=== PATIENT | male | born 1985 | race African-American/Black ===

== ENCOUNTER 2022-05-05 11:02 | Emergency (ER) | payer MEDICAID ==
[~2022-05-05] VITALS: Ht 175.3 cm; Wt 90.9 kg
[2022-05-05 12:16] LABS: Salicylate < 1.7 mg/dL (2.8-20.0)
[2022-05-05 12:21] LABS: Acetaminophen < 2.0 ug/mL (10-30)
[2022-05-05 12:45] LABS: Amphetamine Screen, Urine POSITIVE (NEGATIVE); Barbiturate Scree,Urine NEGATIVE (NEGATIVE); Benzodiazephine Screen, Urine NEGATIVE (NEGATIVE); Cannabinoid Screen, Urine NEGATIVE (NEGATIVE); Cocaine Screen, Urine NEGATIVE (NEGATIVE); Opiate Scree,Urine NEGATIVE (NEGATIVE); Phencyclidine Screen, Urine NEGATIVE (NEGATIVE)
[2022-05-05] MEDS: risperiDONE 1 MG TAB PO SCH (22:00)
[2022-05-06] MEDS: risperiDONE 1 MG TAB PO SCH (19:27)
[2022-05-07] MEDS: risperiDONE 1 MG TAB PO SCH ×3 (00:52→22:33)
[2022-05-08 09:11] VITALS: BP 110/58
[2022-05-08] MEDS: risperiDONE 1 MG TAB PO SCH (19:18)
== END 2022-05-08 18:50 | disposition left against medical advice (07) ==
LOC: ER 11:02 → EDBD 11:02 → ER 05-08 18:50
DX: R45.851 Suicidal ideations (principal); F15.10 Other stimulant abuse, uncomplicated; F20.9 Schizophrenia, unspecified; F17.210 Nicotine dependence, cigarettes, uncomplicated; Z20.822 Contact with and (suspected) exposure to COVID-19
CPT/HCPCS: 36415; 80307; 80320; 80329; 87426

== ENCOUNTER 2024-03-12 19:47 | Emergency (ER) | payer MEDICAID ==
[~2024-03-12] VITALS: Ht 180.3 cm; Wt 114.0 kg
--- NOTE | 2024-03-12 20:05 | ED.PDOC ---
HPI (NEURO) HPI Comments A 38 year old male brought in by EMS presents to the ED with a chief complaint of seizure onset today. Per EMS, the patient was in the kitchen when he experienced a seizure that lasted about 2 minutes and hit head on the fridge, with no history of seizure. Upon EMS arrival patient was ANO x2 and is currently ANO x3. Patient states he is in "drug state of mind." Past medical history of Schizophrenia. No other symptoms or modifying factors present at this time. Chief Complaint: Seizure Time Seen by MD: 19:58 Primary Care Provider: None Information Source: Patient, Emergency Med Personnel Mode of Arrival: EMS Severity: Moderate Headache Severity: Moderate Timing: Hours Duration: Since onset Prehospital treatment: None Seizure Quality: Tonic-clonic Seizure Location: Generalized Circumstances: Spontaneous History of: Substance abuse Past Medical History PAST MEDICAL HISTORY: Schizophrenia Surgical History: Denies all surgeries Family History Family History: Reviewed,noncontributory to illness Social History Smoker: Cigarettes Alcohol: Denies ETOH Use Drugs: Methamphetamine Lives In: Homeless Constitutional: denies: chills, diaphoresis, fatigue, fever, malaise, sweats, weakness, others EENTM: denies: blurred vision, double vision, ear bleeding, ear discharge, ear drainage, ear pain, ear ringing, eye pain, eye redness, hearing loss, mouth pain, mouth swelling, nasal discharge, nose bleeding, nose congestion, nose pain, photophobia, tearing, throat pain, throat swelling, voice changes, others Respiratory: denies: cough, hemoptysis, orthopnea, SOB at rest, shortness of breath, SOB with excertion, stridor, wheezing, others Cardiovascular: denies: chest pain, dizzy spells, diaphoresis, Dyspnea on exertion, edema, irregular heart beat, left arm pain, lightheadedness, palpitations, PND, syncope, others Gastrointestinal: denies: abdomen distended, abdominal pain, blood streaked bowels, constipated, diarrhea, dysphagia, difficulty swallowing, hematemesis, melena, nausea, poor appetite, poor fluid intake, rectal bleeding, rectal pain, vomiting, others Genitourinary: denies: burning, dysuria, flank pain, frequency, hematuria, incontinence, penile discharge, penile sore, pain, testicle pain, testicle swelling, urgency, others Neurological: reports: seizure; denies: dizziness, fainting, headache, left sided numbness, left sided weakness, numbness, paresthesia, pre-existing deficit, right sided numbness, right sided weakness, speech problems, tingling, tremors, weakness, others Musculoskeletal: denies: back pain, gout, joint pain, joint swelling, muscle pain, muscle stiffness, neck pain, others Integumetry: denies: bruises, change in color, change in hair/nails, dryness, laceration, lesions, lumps, rash, wounds, others Allergic/Immunocompromised: denies: Difficulty Healing, Frequent Infections, Hives, Itching, others Hematologic/Lymphatic: denies: anemia, blood clots, easy bleeding, easy bruising, swollen glands, others Endocrine: denies: excessive hunger, excessive sweating, excessive thirst, excessive urination, flushing, intolerance to cold, intolerance to heat, unexplained weight gain, unexplained weight loss, others Psychiatric: denies: anxiety, bipolar disorder, depression, hopeless, panic disorder, schizophrenia, sleepless, suicidal, others All Other Systems: Reviewed and Negative Physical Exam General Appearance: No Apparent Distress, Normal HEENT: Normal ENT Inspection, Pharynx Normal, TMs Normal Neck: Full Range of Motion, Non-Tender, Normal, Normal Inspection Respiratory: Chest Non-Tender, Lungs Clear, No Accessory Muscle Use, No Respiratory Distress, Normal Breath Sounds Cardiovascular: No Edema, No JVD, No Murmur, No Gallop, Normal Peripheral Pulses, Regular Rate/Rhythm Breast Exam: Deferred Gastrointestinal: No Organomegaly, Non Tender, No Pulsatile Mass, Normal Bowel Sounds, Soft Genitalia: Deferred Pelvic: Deferred Rectal: Deferred Extremities: No calf tenderness, Normal capillary refill, Normal inspection, N ormal range of motion, Non-tender, No pedal edema Musculoskeletal : Apperance: Normal Neurologic: Alert, production zone leader II-XII nml as Tested, No Motor Deficits, Normal Affect, Normal Mood, No Sensory Deficits Cerebellar Function: Normal Reflexes: Normal Skin: Dry, Normal Color, Warm Lymphatic: No Adenopathy Was a procedure done? Was a procedure done?: No Differential Diagnosis (SZ) Seizure: Psychogenic Seizure, Hypocalcemia, Hypoglycemia, Hyponatremia, Hypoxemia CVA: CVA, DKA General Weakness: N/A Headache: N/A X-Ray, Labs, Meds, VS Vital Signs Date Time Temp Pulse Resp B/P (MAP) Pulse Ox O2 Delivery O2 Flow Rate FiO2 03/13/24 05:00 108 21 135/86 (102) 100 03/13/24 04:00 118 03/13/24 03:00 119 17 127/81 (96) 92 03/13/24 01:28 134 14 134/95 (108) 96 03/13/24 00:00 93 03/12/24 22:00 122 32 152/69 (96) 91 03/12/24 20:38 127 19 93 Room Air* 0 21 03/12/24 20:37 97.9 127 19 120/81 (94) 93 97.9 03/12/24 20:05 129 03/12/24 20:00 127 03/12/24 19:55 97.6 130 18 115/65 (82) 96 Lab Test 03/12/24 20:46 03/12/24 20:45 Range/Units White Blood Count 10.8 4.4-10.8 10^3/uL Red Blood Count 5.59 4.5-5.90 10^6/uL Hemoglobin 17.4 13.5-17.5 g/dL Hematocrit 50.5 41.0-53.0 % Mean Corpuscular Volume 90.3 80.0-100.0 fL Mean Corpuscular Hemoglobin 31.0 28.0-32.0 pg Mean Corpuscular Hemoglobin Concent 34.4 32.0-36.0 g/dL Red Cell Distribution Width 13.8 11.8-14.3 % Platelet Count 243 140-450 10^3/uL Mean Platelet Volume 8.4 6.9-10.8 fL Neutrophils (%) (Auto) 81.1 H 37.0-80.0 % Lymphocytes (%) (Auto) 7.3 L 10.0-50.0 % Monocytes (%) (Auto) 11.2 0.0-12.0 % Eosinophils (%) (Auto) 0.3 0.0-7.0 % Basophils (%) (Auto) 0.1 0.0-2.0 % Neutrophils # (Auto) 8.7 H 1.6-8.6 10 ^3/uL Lymphocytes # (Auto) 0.8 0.4-5.4 10 ^3/uL Monocytes # (Auto) 1.2 0-1.3 10 ^3/uL Eosinophils # (Auto) 0 0-0.8 10 ^3/uL Basophils # (Auto) 0 0-0.2 10 ^3/uL Nucleated Red Blood Cells 0.1 % Sodium Level 128 L 136-145 mmol/L Potassium Level 4.0 3.5-5.1 mmol/L Chloride Level 94 L 98-107 mmol/L Carbon Dioxide Level 23 20-31 mmol/L Anion Gap 11 5-15 Blood Urea Nitrogen 13 9-23 mg/dL Creatinine 1.23 0.700-1.30 mg/dL Glomerular Filtration Rate Calc 77 >90 mL/min BUN/Creatinine Ratio 10.6 10.0-20.0 Serum Glucose 131 H 74-106 mg/dL Calcium Level 9.6 8.7-10.4 mg/dL Urine Color Colorless Yellow Urine Clarity Clear Clear Urine pH 5.5 5.0-9.0 Urine Specific [place] 1.010 1.001-1.035 Urine Protein 1+ H Negative Urine Ketones Trace Negative Urine Blood 2+ H Negative /uL Urine Nitrite Negative Negative Urine Bilirubin Negative Negative Urine Urobilinogen Normal Negative mg/dL Urine Leukocyte Esterase Negative Negative /uL Urine RBC 2 0 - 3 /hpf Urine WBC 1 0 - 3 /hpf Urine Squamous Epithelial Cells Few <5 /hpf Urine Bacteria None seen None Seen /hpf Urine Mucus Few None Seen Urine Sperm Present None Seen /hpf Urine Glucose Normal Normal mg/dL Urine Opiates Screen Neg NEGATIVE Urine Fentanyl Screen Neg NEGATIVE Urine Barbiturates Screen Neg NEGATIVE Urine Phencyclidine Screen Neg NEGATIVE Urine Amphetamines Screen Pos NEGATIVE Urine Benzodiazepines Screen Neg NEGATIVE Urine Cocaine Screen Neg NEGATIVE Urine Cannabinoids Screen Neg NEGATIVE Current Medications Medications (Trade) Dose Ordered Sig/Lilia Route Start Time Stop Time Status Last Admin Sodium Chloride 1,000 ml @ 1,000 mls/hr Q1H ONCE IV 03/12/24 23:15 03/13/24 00:14 DC 03/12/24 23:[address] [address] Ph: [phone] DIAGNOSTIC IMAGING Diagnostic Imaging Report : [id number] Signed PATIENT: KRISTOFER THOMPSON ACCT: [id number] UNIT: [id number] : 1985 LOC: ER ROOM / BED: / AGE / SEX: 38 / M ADM STATUS: REG ER SERVICE 00 ORDERING PHYSICIAN: TASNEEM CASTELLANOS MD PROCEDURE(s): HWOCT - HEAD WITHOUT CONTRAST REASON: seizure ORDER NUMBER(s): [id number], ACCESSION NUMBER(s): [id number] EXAM: CT HEAD WITHOUT CONTRAST INDICATION: seizure TECHNIQUE: CT of the head without intravenous contrast. Radiation Dose Information: CT Dose: CTDI volume is 139.62 mGy. Dose-length product is 2748.91 mGy*cm The dose indicators for CT are the volume Computed Tomography (CT) Dose Index (CTDIvol) and the Dose Length Product (DLP), and are measured in units of mGy and mGy-cm, respectively. These indicators are not patient dose, but values generated from the CT scanner acquisition factors. The report includes radiation exposure data for exposures received during this examination. COMPARISON: None FINDINGS: There is no evidence of acute intracranial hemorrhage, extra-axial collection, mass effect, midline shift, herniation or hydrocephalus. The ventricles, sulci and cisterns are age appropriate. The king-white differentiation is intact. Patchy periventricular and subcortical white matter hypoattenuation is nonspecific but may be related to small vessel ischemic disease. The visualized paranasal sinuses and mastoid air cells are clear. The surrounding soft tissues and osseous structures are unremarkable. IMPRESSION: 1. No acute intracranial hemorrhage. 2. No CT findings of territorial ischemia. 3. No intracranial mass or mass effect. ATED BY: NELLY FULTON Jr., DO DICTATED DATE/TIME: 03/12/242035 SIGNED BY: NELLY FULTON Jr., DO SIGNED DATE/TIME: 03/12/242035 CC: [place] [id number] Ph: [phone] DIAGNOSTIC IMAGING Diagnostic Imaging Report : [id number] Signed PATIENT: KRISTOFER THOMPSON ACCT: [id number] UNIT: [id number] : 1985 LOC: ER ROOM / BED: / AGE / SEX: 38 / M ADM STATUS: REG ER SERVICE 00 ORDERING PHYSICIAN: TASNEEM CASTELLANOS MD PROCEDURE(s): CXR2 - CHEST TWO VIEWS ROUTINE REASON: seizure ORDER NUMBER(s): [id number], ACCESSION NUMBER(s): [id number] EXAM: XY CHEST TWO VIEWS ROUTINE CLINICAL HISTORY: seizure TECHNIQUE: Frontal and lateral views of the chest WID: COMPARISON: None FINDINGS: Lines and tubes: None Chest: The heart size and pulmonary vasculature is within normal limits. No pleural effusion, pneumothorax, or consolidation. The osseous structures are grossly intact. IMPRESSION: No acute cardiopulmonary abnormality. ATED BY: KRYSTA MCCLAIN MD DICTATED DATE/TIME: 03/12/242033 SIGNED BY: KRYSTA MCCLAIN MD SIGNED DATE/TIME: 03/12/242033 CC: [place] [id number] Ph: [phone] DIAGNOSTIC IMAGING Diagnostic Imaging Report : [id number] Signed PATIENT: KRISTOFER THOMPSON ACCT: [id number] UNIT: [id number] : 1985 LOC: ER ROOM / BED: / AGE / SEX: 38 / M ADM STATUS: REG ER SERVICE 00 ORDERING PHYSICIAN: TASNEEM CASTELLANOS MD PROCEDURE(s): HWOCT - HEAD WITHOUT CONTRAST REASON: seizure ORDER NUMBER(s): [id number], ACCESSION NUMBER(s): [id number] EXAM: CT HEAD WITHOUT CONTRAST INDICATION: seizure TECHNIQUE: CT of the head without intravenous contrast. Radiation Dose Information: CT Dose: CTDI volume is 139.62 mGy. Dose-length product is 2748.91 mGy*cm The dose indicators for CT are the volume Computed Tomography (CT) Dose Index (CTDIvol) and the Dose Length Product (DLP), and are measured in units of mGy and mGy-cm, respectively. These indicators are not patient dose, but values generated from the CT scanner acquisition factors. The report includes radiation exposure data for exposures received during this examination. COMPARISON: None FINDINGS: There is no evidence of acute intracranial hemorrhage, extra-axial collection, mass effect, midline shift, herniation or hydrocephalus. The ventricles, sulci and cisterns are age appropriate. The king-white differentiation is intact. Patchy periventricular and subcortical white matter hypoattenuation is nonspecific but may be related to small vessel ischemic disease. The visualized paranasal sinuses and mastoid air cells are clear. The surrounding soft tissues and osseous structures are unremarkable. IMPRESSION: 1. No acute intracranial hemorrhage. 2. No CT findings of territorial ischemia. 3. No intracranial mass or mass effect. ATED BY: NELLY FULTON Jr., DO DICTATED DATE/TIME: 03/12/242035 SIGNED BY: NELLY FULTON Jr., SIGNED DATE/TIME: 03/12/242035 CC: Time of 1ST Reevaluation: 20:28 Reevaluation 1ST: Unchanged Patient Education/Counseling: Diagnosis, Treatment, Prognosis Family Education/Counseling: No Family Present Additional Information I reviewed the following notes from patient's past medical encounters: The following tests were ordered, and results were reviewed by me: BMP, CBC, XY CHEST 2 VIEWS, UA, DRUG SCREEN, CT HEAD WITHOUT CONTRAST Additional Information was gathered from interviewing the following independent historians: EMS I reviewed and agreed with the following test results read by other providers: CT HEAD WITHOUT CONTRAST, XY CHEST 2 VIEWS I discussed treatment and results with medical personnel and: patient Departure 1 Departure Time of Disposition: 05:39 (Patient returned to baseline. Patient will polysubstance abuse. We will discharge patient home with outpatient follow up) Impression: Primary Impression: Polysubstance abuse Disposition: HOME / SELF CARE / HOMELESS Condition: Stable Additional Instructions: Do not use drugs. There are resources to help you quit. You can call: [phone] ([phone]) If your symptoms worsen or you have any other concerns please return to the emergency room. Discharged With: Self Critical Care Note Critical Care Time?: No Stability Stability form required: No I personally scribed for TASNEEM CASTELLANOS MD ([email or web address]) on 03/12/24 at 20:05. Electronically submitted by Deborah Lux ([email or web address]). I personally scribed for TASNEEM CASTELLANOS MD ([email or web address]) on 03/12/24 at 20:06. Electronically submitted by Deborah Lux ([email or web address]). I personally scribed for TASNEEM CASTELLANOS MD ([email or web address]) on 03/12/24 at 20:39. Electronically submitted by Deborah Lux ([email or web address]). I personally scribed for TASNEEM CASTELLANOS MD ([email or web address]) on 03/12/24 at 23:15. Electronically submitted by Deborah Lux ([email or web address]). TASNEEM CASTELLANOS MD Mar 12, 2024 20:05
--- NOTE | 2024-03-12 20:36 | DVH ---
EXAM: XY CHEST TWO VIEWS ROUTINE CLINICAL HISTORY: seizure TECHNIQUE: Frontal and lateral views of the chest WID: COMPARISON: None FINDINGS: Lines and tubes: None Chest: The heart size and pulmonary vasculature is within normal limits. No pleural effusion, pneumothorax, or consolidation. The osseous structures are grossly intact. IMPRESSION: No acute cardiopulmonary abnormality.
[2024-03-12 20:37] VITALS: TEMP 97.9
[2024-03-12 20:38] VITALS: PULSE 127; RESP 19; O2SAT 93
--- NOTE | 2024-03-12 20:38 | DVH ---
EXAM: CT HEAD WITHOUT CONTRAST INDICATION: seizure TECHNIQUE: CT of the head without intravenous contrast. Radiation Dose Information: CT Dose: CTDI volume is 139.62 mGy. Dose-length product is 2748.91 mGy*cm The dose indicators for CT are the volume Computed Tomography (CT) Dose Index (CTDIvol) and the Dose Length Product (DLP), and are measured in units of mGy and mGy-cm, respectively. These indicators are not patient dose, but values generated from the CT scanner acquisition factors. The report includes radiation exposure data for exposures received during this examination. COMPARISON: None FINDINGS: There is no evidence of acute intracranial hemorrhage, extra-axial collection, mass effect, midline s hift, herniation or hydrocephalus. The ventricles, sulci and cisterns are age appropriate. The king-white differentiation is intact. Patchy periventricular and subcortical white matter hypoattenuation is nonspecific but may be related to small vessel ischemic disease. The visualized paranasal sinuses and mastoid air cells are clear. The surrounding soft tissues and osseous structures are unremarkable. IMPRESSION: 1. No acute intracranial hemorrhage. 2. No CT findings of territorial ischemia. 3. No intracranial mass or mass effect.
[2024-03-12 20:49] LABS: Urine Bacteria None Seen /hpf (None Seen)
[2024-03-12 21:01] LABS: Basophils # (auto) 0 10 ^3/uL (0-0.2); Basophils % (auto) 0.1 % (0.0-2.0); Eosinophils # (auto) 0 10 ^3/uL (0-0.8); Eosinophils % (auto) 0.3 % (0.0-7.0); Hematocrit 50.5 % (41.0-53.0); Hemoglobin 17.4 g/dL (13.5-17.5); Lymphocytes # (auto) 0.8 10 ^3/uL (0.4-5.4); Lymphocytes % (auto) 7.3 % (10.0-50.0); Mean Corpuscular Hgb Conc. 34.4 g/dL (32.0-36.0); Mean Corpuscular Volume 90.3 fL (80.0-100.0); Monocytes # (auto) 1.2 10 ^3/uL (0-1.3); Monocytes % (auto) 11.2 % (0.0-12.0); Neutrophils # (auto) 8.7 10 ^3/uL (1.6-8.6); Neutrophils % (auto) 81.1 % (37.0-80.0); Nucleated Red Blood Cells % 0.1 %; Platelet Count (auto) 243 10^3/uL (140-450); Red Blood Cells 5.59 10^6/uL (4.5-5.90); Red Cell Distribution Width 13.8 % (11.8-14.3); White Blood Cell 10.8 10^3/uL (4.4-10.8)
[2024-03-12 21:07] LABS: Urine Blood 2+ /uL (Negative); Urine Clarity Clear (Clear); Urine Color Colorless (Yellow); Urine Mucus FEW (None Seen); Urine Protein, UAD 1+ (Negative); Urine Sperm PRESENT /hpf (None Seen); Urine Urobilinogen Normal (Negative); Urine WBC 1 /hpf (0 - 3); Urine pH 5.5 (5.0-9.0)
[2024-03-12 21:12] LABS: Anion Gap 11 (5-15); Calcium 9.6 mg/dL (8.7-10.4); Carbon Dioxide 23 mmol/L (20-31)
[2024-03-12 21:17] LABS: BUN/Creatinine Ratio 10.6 (10.0-20.0); Blood Urea Nitrogen 13 mg/dL (9-23)
[2024-03-12 21:18] LABS: Amphetamine Screen, Urine Pos (NEGATIVE); Barbiturate Scree,Urine Neg (NEGATIVE); Benzodiazephine Screen, Urine Neg (NEGATIVE); Cannabinoid Screen, Urine Neg (NEGATIVE); Cocaine Screen, Urine Neg (NEGATIVE); Opiate Scree,Urine Neg (NEGATIVE); Phencyclidine Screen, Urine Neg (NEGATIVE)
[2024-03-12 22:06] LABS: Chloride 94 mmol/L (98-107); Glucose 131 mg/dL (74-106); Sodium 128 mmol/L (136-145)
[2024-03-12] MEDS: SODIUM CHLORIDE 0.9% 1,000 ML IV ONE (23:19)
[2024-03-13 05:00] VITALS: BP 135/86; PULSE 108; RESP 21; O2SAT 100
--- NOTE | 2024-03-13 07:11 | ECG ---
[facility] Test Date: 2024-03-12 Test Time: 20:05:01 Pat Name: KRISTOFER THOMPSON Department: ER Room: Gender: M Insurance Follow Up Representative: : 1985 Requested By: TASNEEM CASTELLANOS Order Number: [id number] Reading MD: Marc Prabhakar Measurements Intervals [place] Rate: 129 P: 62 ID: [id number] QRS: 77 QRSD: 86 T: -17 QT: 286 QTc: 419 Interpretive Statements Sinus tachycardia Atrial premature complex Left atrial enlargement Borderline T abnormalities, inferior leads Borderline ST elevation, anterior leads Electronically Signed On 03-13-2024 14:20:30 PST by Marc Prabhakar Please click the below link to view image of tracing.
== END 2024-03-13 05:40 | disposition home or self-care (01) ==
LOC: ER 19:47 → EDBD 19:47 → ER 03-13 05:40
DX: F19.10 Other psychoactive substance abuse, uncomplicated (principal); F15.10 Other stimulant abuse, uncomplicated; R56.9 Unspecified convulsions; F17.210 Nicotine dependence, cigarettes, uncomplicated; Z59.00 Homelessness unspecified
CPT/HCPCS: 36415; 70450; 71046; 80048; 80307; 81001; 85025; 93005; 96360; 99285; J7030

== ENCOUNTER 2024-04-07 19:55 | Emergency (ER) | payer MEDICAID ==
[~2024-04-07] VITALS: Ht 182.9 cm; Wt 104.5 kg
--- NOTE | 2024-04-07 20:05 | ED.PDOC ---
Psychiatric HPI Comments 38 y.o male presents to the ED via EMS for an evaluation of suicidal ideation. Patient is coming from a transitional assistance facility in which he has been residing in for one month, states life is difficult for him at the moment and is having suicidal ideation with a plan to starve himself. Patient denies any HI. He denies any other symptoms or pain at this time. Patient has is non compliant with his medication. Patient admits to alcohol, tobacco and methamphetamine use Time Seen by MD: 20:00 Primary Care Provider: None Reviewed Notes: Nurses Notes, Hotel Valet Attendant Notes, Medications, Allergies Information Source: Patient, Emergency Med Personnel Mode of Arrival: EMS Severity: Unable to Care for Self Severity of Pain: None Severity of Mental Status: Moderate Severity of Symptoms: Moderate Timing: Hours Duration: Since onset Presents with: Unclear Thinking, Suicidal Ideation Ingestion: None Current substance abuse: ETOH, Amphetamines Stressors: None Past Medical History PAST MEDICAL HISTORY: Schizophrenia Surgical History: Denies all surgeries Family History Family History: Reviewed,noncontributory to illness Social History Smoker: Cigarettes Alcohol: Denies ETOH Use Drugs: Methamphetamine Lives In: Homeless Constitutional: denies: chills, diaphoresis, fatigue, fever, malaise, sweats, weakness, others EENTM: denies: blurred vision, double vision, ear bleeding, ear discharge, ear drainage, ear pain, ear ringing, eye pain, eye redness, hearing loss, mouth pain, mouth swelling, nasal discharge, nose bleeding, nose congestion, nose deoin n, photophobia, tearing, throat pain, throat swelling, voice changes, others Respiratory: denies: cough, hemoptysis, orthopnea, SOB at rest, shortness of breath, SOB with excertion, stridor, wheezing, others Cardiovascular: denies: chest pain, dizzy spells, diaphoresis, Dyspnea on exertion, edema, irregular heart beat, left arm pain, lightheadedness, palpitations, PND, syncope, others Gastrointestinal: denies: abdomen distended, abdominal pain, blood streaked bowels, constipated, diarrhea, dysphagia, difficulty swallowing, hematemesis, melena, nausea, poor appetite, poor fluid intake, rectal bleeding, rectal pain, vomiting, others Genitourinary: denies: burning, dysuria, flank pain, frequency, hematuria, incontinence, penile discharge, penile sore, pain, testicle pain, testicle swelling, urgency, others Neurological: denies: dizziness, fainting, headache, left sided numbness, left sided weakness, numbness, paresthesia, pre-existing deficit, right sided numbness, right sided weakness, seizure, speech problems, tingling, tremors, weakness, others Musculoskeletal: denies: back pain, gout, joint pain, joint swelling, muscle pain, muscle stiffness, neck pain, others Integumetry: denies: bruises, change in color, change in hair/nails, dryness, laceration, lesions, lumps, rash, wounds, others Allergic/Immunocompromised: denies: Difficulty Healing, Frequent Infections, Hives, Itching, others Hematologic/Lymphatic: denies: anemia, blood clots, easy bleeding, easy bruising, swollen glands, others Endocrine: denies: excessive hunger, excessive sweating, excessive thirst, excessive urination, flushing, intolerance to cold, intolerance to heat, unexplained weight gain, unexplained weight loss, others Psychiatric: reports: suicidal; denies: anxiety, bipolar disorder, depression, hopeless, panic disorder, schizophrenia, sleepless, others Physical Exam General Appearance: No Apparent Distress HEENT: Normal ENT Inspection, Pharynx Normal, TMs Normal Neck: Full Range of Motion, Non-Tender, Normal, Normal Inspection Respiratory: Chest Non-Tender, Lungs Clear, No Accessory Muscle Use, No Respiratory Distress, Normal Breath Sounds Cardiovascular: No Edema, No JVD, No Murmur, No Gallop, Normal Peripheral Pulses, Regular Rate/Rhythm Breast Exam: Deferred Gastrointestinal: No Organomegaly, Non Tender, No Pulsatile Mass, Normal Bowel Sounds, Soft Genitalia: Deferred Pelvic: Deferred Rectal: Deferred Extremities: No calf tenderness, Normal capillary refill, Normal inspection, Normal range of motion, Non-tender, No pedal edema Musculoskeletal : Apperance: Normal Neurologic: Alert, stick puller II-XII nml as Tested, No Motor Deficits, No Sensory Deficits, Other Cerebellar Function: Normal Reflexes: Normal Skin: Dry, Normal Color, Warm Lymphatic: No Adenopathy Was a procedure done? Was a procedure done?: No Psych Differential Dx Psych. Differential Dx: Hopeless, Suicidal X-Ray, Labs, Meds, VS Vital Signs Date Time Temp Pulse Resp B/P (MAP) Pulse Ox O2 Delivery O2 Flow Rate FiO2 04/07/24 20:00 98.4 88 17 135/82 (99) 95 Lab Test 04/07/24 20:42 Range/Units White Blood Count 5.6 4.4-10.8 10^3/uL Red Blood Count 5.44 4.5-5.90 10^6/uL Hemoglobin 16.8 13.5-17.5 g/dL Hematocrit 49.2 41.0-53.0 % Mean Corpuscular Volume 90.4 80.0-100.0 fL Mean Corpuscular Hemoglobin 30.9 28.0-32.0 pg Mean Corpuscular Hemoglobin Concent 34.2 32.0-36.0 g/dL Red Cell Distribution Width 15.0 H 11.8-14.3 % Platelet Count 367 140-450 10^3/uL Mean Platelet Volume 8.1 6.9-10.8 fL Neutrophils (%) (Auto) 59.5 37.0-80.0 % Lymphocytes (%) (Auto) 28.5 10.0-50.0 % Monocytes (%) (Auto) 9.8 0.0-12.0 % Eosinophils (%) (Auto) 1.5 0.0-7.0 % Basophils (%) (Auto) 0.7 0.0-2.0 % Neutrophils # (Auto) 3.3 1.6-8.6 10 ^3/uL Lymphocytes # (Auto) 1.6 0.4-5.4 10 ^3/uL Monocytes # (Auto) 0.5 0-1.3 10 ^3/uL Eosinophils # (Auto) 0.1 0-0.8 10 ^3/uL Basophils # (Auto) 0 0-0.2 10 ^3/uL Nucleated Red Blood Cells 0.1 % Sodium Level Pending Potassium Level Pending Chloride Level Pending Carbon Dioxide Level Pending Anion Gap Pending Blood Urea Nitrogen Pending Creatinine Pending Glomerular Filtration Rate Calc Pending BUN/Creatinine Ratio Pending Serum Glucose Pending Calcium Level Pending Plasma/Serum Blood Alcohol Pending The CBC is within normal limits The patient remained suicidal At this time we are clearing the patient for a telemedicine psychiatry consult The patient will be signed out to Dr. Anderson Time of 1ST Reevaluation: 20:05 Reevaluation 1ST: Unchanged Patient Education/Counseling: Diagnosis, Treatment, Prognosis Family Education/Counseling: No Family Present Departure 1 Departure Time of Disposition: 21:05 Impression: Primary Impression: Suicidal ideation Additional Impression: Methamphetamine use Disposition: 30 STILL A PATIENT Condition: Fair Critical Care Note Critical Care Time?: No Stability Stability form required: No I personally scribed for ROCIO PAERKH MD ([email or web address]) on 04/07/24 at 20:05. Electronically submitted by Valencia Blas ([facility]). ROCIO PAREKH MD Apr 07, 2024 20:05
[2024-04-07 20:15] VITALS: PULSE 88; RESP 17; O2SAT 95
[2024-04-07 20:53] LABS: Basophils # (auto) 0 10 ^3/uL (0-0.2); Basophils % (auto) 0.7 % (0.0-2.0); Eosinophils # (auto) 0.1 10 ^3/uL (0-0.8); Eosinophils % (auto) 1.5 % (0.0-7.0); Hematocrit 49.2 % (41.0-53.0); Hemoglobin 16.8 g/dL (13.5-17.5); Lymphocytes # (auto) 1.6 10 ^3/uL (0.4-5.4); Lymphocytes % (auto) 28.5 % (10.0-50.0); Mean Corpuscular Hemoglobin 30.9 pg (28.0-32.0); Mean Corpuscular Hgb Conc. 34.2 g/dL (32.0-36.0); Mean Corpuscular Volume 90.4 fL (80.0-100.0); Monocytes # (auto) 0.5 10 ^3/uL (0-1.3); Monocytes % (auto) 9.8 % (0.0-12.0); Neutrophils # (auto) 3.3 10 ^3/uL (1.6-8.6); Neutrophils % (auto) 59.5 % (37.0-80.0); Nucleated Red Blood Cells % 0.1 %; Platelet Count (auto) 367 10^3/uL (140-450); Red Blood Cells 5.44 10^6/uL (4.5-5.90); White Blood Cell 5.6 10^3/uL (4.4-10.8)
[2024-04-07 21:03] LABS: Chloride 106 mmol/L (98-107); Potassium 3.7 mmol/L (3.5-5.1); Sodium 139 mmol/L (136-145)
[2024-04-07 21:04] LABS: Anion Gap 8 (5-15); Carbon Dioxide 25 mmol/L (20-31)
[2024-04-07 21:08] LABS: Calcium 10.8 mg/dL (8.7-10.4)
[2024-04-07 21:10] LABS: BUN/Creatinine Ratio 7.8 (10.0-20.0); Blood Alcohol 3.1 mg/dL (<10)
[2024-04-07 21:11] LABS: Blood Urea Nitrogen 8 mg/dL (9-23); Glucose 119 mg/dL (74-106)
[2024-04-07 23:51] LABS: Amphetamine Screen, Urine Pos (NEGATIVE); Barbiturate Scree,Urine Neg (NEGATIVE); Benzodiazephine Screen, Urine Neg (NEGATIVE); Cannabinoid Screen, Urine Neg (NEGATIVE); Cocaine Screen, Urine Neg (NEGATIVE); Opiate Scree,Urine Neg (NEGATIVE); Phencyclidine Screen, Urine Neg (NEGATIVE)
[2024-04-08 08:00] VITALS: PULSE 95; RESP 14; O2SAT 95
--- NOTE | 2024-04-08 09:04 | DVHINCON2 ---
Date of Service if different f: Apr 08, 2024 Time of Service: 08:38 Consultation ([facility]) Consulting Physician: CAESAR SANCHEZ MD Labs Laboratory Tests Test 04/07/24 20:19 04/07/24 20:42 Urine Opiates Screen Neg (NEGATIVE) Urine Fentanyl Screen Neg (NEGATIVE) Urine Barbiturates Screen Neg (NEGATIVE) Urine Phencyclidine Screen Neg (NEGATIVE) Urine Amphetamines Screen Pos (NEGATIVE) Urine Benzodiazepines Screen Neg (NEGATIVE) Urine Cocaine Screen Neg (NEGATIVE) Urine Cannabinoids Screen Neg (NEGATIVE) White Blood Count 5.6 10^3/uL (4.4-10.8) Red Blood Count 5.44 10^6/uL (4.5-5.90) Hemoglobin 16.8 g/dL (13.5-17.5) Hematocrit 49.2 % (41.0-53.0) Mean Corpuscular Volume 90.4 fL (80.0-100.0) Mean Corpuscular Hemoglobin 30.9 pg (28.0-32.0) Mean Corpuscular Hemoglobin Concent 34.2 g/dL (32.0-36.0) Red Cell Distribution Width 15.0 % (11.8-14.3) Platelet Count 367 10^3/uL (140-450) Mean Platelet Volume 8.1 fL (6.9-10.8) Neutrophils (%) (Auto) 59.5 % (37.0-80.0) Lymphocytes (%) (Auto) 28.5 % (10.0-50.0) Monocytes (%) (Auto) 9.8 % (0.0-12.0) Eosinophils (%) (Auto) 1.5 % (0.0-7.0) Basophils (%) (Auto) 0.7 % (0.0-2.0) Neutrophils # (Auto) 3.3 10 ^3/uL (1.6-8.6) Lymphocytes # (Auto) 1.6 10 ^3/uL (0.4-5.4) Monocytes # (Auto) 0.5 10 ^3/uL (0-1.3) Eosinophils # (Auto) 0.1 10 ^3/uL (0-0.8) Basophils # (Auto) 0 10 ^3/uL (0-0.2) Nucleated Red Blood Cells 0.1 % Sodium Level 139 mmol/L (136-145) Potassium Level 3.7 mmol/L (3.5-5.1) Chloride Level 106 mmol/L (98-107) Carbon Dioxide Level 25 mmol/L (20-31) Anion Gap 8 (5-15) Blood Urea Nitrogen 8 mg/dL (9-23) Creatinine 1.03 mg/dL (0.700-1.30) Glomerular Filtration Rate Calc 95 mL/min (>90) BUN/Creatinine Ratio 7.8 (10.0-20.0) Serum Glucose 119 mg/dL (74-106) Calcium Level 10.8 mg/dL (8.7-10.4) Plasma/Serum Blood Alcohol 3.1 mg/dL (<10) Appearance: Older than stated age, Disheveled Psychomotor activity: WNL, Calm Behavioral: Cooperative Eye contact: Appropriate Speech: WNL Affect: Appropriate, Mood Congruent Mood: Depressed Thought processes: Linear/Goal-directed Thought content: Hallucinations Suicidal ideations: Present Homicidal ideations: Absent Orientation: Person, Place, Time, Situation Memory intact: Recent Intellect: Average Abstractability: WNL Concentration: Adequate Attention: Adequate Judgement: WNL Insight: Fair Vitals Vital Signs Date Time Temp Pulse Resp B/P (MAP) Pulse Ox O2 Delivery O2 Flow Rate FiO2 04/08/24 07:45 98.2 95 14 118/71 (87) 100 98.2 04/07/24 20:15 Room Air* 0 21 Treatment plan discussed: With staff Medication adjusted: Yes Labs ordered: No Psychotherapy provided: No Type: Voluntary History of Present Illness Reason for Consult : psychiatric evaluation PER ED PHYSICIAN:38 y.o male presents to the ED via EMS for an evaluation of suicidal ideation. Patient is coming from a transitional assistance facility in which he has been residing in for one month, states life is difficult for him at the moment and is having suicidal ideation with a plan to starve himself. Patient denies any HI. He denies any other symptoms or pain at this time. Patient has is non compliant with his medication. Patient admits to alcohol, tobacco and methamphetamine use PSYCHIATRIST HPI: The patient was seen and evaluated at [facility] ED via telepsychiatry platform. 38 yr old male Reported "Im feeling suicidal." He said he often has suicidal thoughts and has thought about cutting himself the past couple days. He hasn't done anything to harm himself and stated he does not plan to harm himself. He reported he hears voices which he said are low right now "so they are not a problem." He noted risperidone helps decrease the voices. He last took it yesterday. He stated he feels like his main issue is the transitional living he has been staying at. He said it is in area where there are a lot of drugs and he would like to avoid using meth. He is interested in getting into a sober living facility. He noted he has difficult staying off meth at his current residence. He denied having HI/AVH. Past Psychiatric History : Ten hospitalizations. Last hospitalized about 5 months ago. No past suicide attempt. Diagnosed with bipolar disorder at around age 35. Current medications: risperidone 2mg, trazodone 50mg qhs NKDA Past Medical History : none Substance Use: Meth-smokes about once a week. Occasional alcohol use. Denied other drug use. Has attended rehab a few months ago. Social History : Lives in a transitional living place for the past month which he doesn't want to return to because of the drug activity there. DIAGNOSIS: UNSPECIFIED DEPRESSIVE DISORDER: METH USE DISORDER Formulation: This 38 yr old male appears to suffer from depression which he attributes to the drug infested environment of his current transitional residence. He may benefit from getting into a sober living facility to help maintain his sobriety and he also would benefit from continuing on Risperdal and trazodone. He does not warrant inpatient hospitalization. Plan: 1. Safety. The patient is a low risk for suicide and may be managed as an outpatient. Recommend social work consult to help patient get into a sober living or rehab facility as he feels it is too stressful and depressing at his current residence. 2. Legal-voluntary. 3. Medications: recommend Risperdal 2mg qhs and Trazodone 50mg qhs for sleep. 4. Case discussed with ED RN, Juany. 5. Please recontact psychiatry for further follow up or reevaluation. Assessment/Diagnosis/Plan Reviewed: Labs, Medications, Previous Orders CAESAR SANCHEZ MD Apr 08, 2024 08:39
[2024-04-08 14:10] VITALS: BP 115/82; PULSE 94; RESP 16; TEMP 98.7; O2SAT 97
== END 2024-04-08 14:25 | disposition short-term general hospital (02) ==
LOC: EDBD 19:55 → ER 19:55
DX: R45.851 Suicidal ideations (principal); F15.90 Other stimulant use, unspecified, uncomplicated; F17.210 Nicotine dependence, cigarettes, uncomplicated; F20.9 Schizophrenia, unspecified; Z59.00 Homelessness unspecified; Z79.899 Other long term (current) drug therapy
CPT/HCPCS: 36415; 80048; 80307; 80320; 85025

== ENCOUNTER 2024-06-02 23:43 | Emergency (ER) | payer MEDICAID ==
[~2024-06-02] VITALS: Ht 182.9 cm; Wt 108.8 kg
[2024-06-03 00:42] LABS: Eosinophils # (auto) 0.1 10 ^3/uL (0-0.8); Monocytes # (auto) 0.5 10 ^3/uL (0-1.3); Neutrophils # (auto) 3.7 10 ^3/uL (1.6-8.6)
[2024-06-03 00:43] LABS: Basophils # (auto) 0 10 ^3/uL (0-0.2); Basophils % (auto) 0.6 % (0.0-2.0); Eosinophils % (auto) 1.5 % (0.0-7.0); Hematocrit 51.8 % (41.0-53.0); Hemoglobin 17.9 g/dL (13.5-17.5); Lymphocytes # (auto) 1.8 10 ^3/uL (0.4-5.4); Lymphocytes % (auto) 29.4 % (10.0-50.0); Mean Corpuscular Hemoglobin 31.3 pg (28.0-32.0); Mean Corpuscular Hgb Conc. 34.5 g/dL (32.0-36.0); Mean Corpuscular Volume 90.7 fL (80.0-100.0); Monocytes % (auto) 8.3 % (0.0-12.0); Neutrophils % (auto) 60.2 % (37.0-80.0); Nucleated Red Blood Cells % 0.1 %; Platelet Count (auto) 288 10^3/uL (140-450); Red Blood Cells 5.71 10^6/uL (4.5-5.90); White Blood Cell 6.1 10^3/uL (4.4-10.8)
[2024-06-03 00:57] LABS: Urine Bacteria None Seen /hpf (None Seen)
[2024-06-03 00:58] LABS: Chloride 105 mmol/L (98-107); Potassium 4.6 mmol/L (3.5-5.1); Sodium 139 mmol/L (136-145)
[2024-06-03 00:59] LABS: Anion Gap 6 (5-15); Calcium 10.4 mg/dL (8.7-10.4); Carbon Dioxide 28 mmol/L (20-31)
[2024-06-03 01:04] LABS: Acetaminophen < 2.0 UG/ML (10.0-20.0); BUN/Creatinine Ratio 8.7 (10.0-20.0); Blood Urea Nitrogen 11 mg/dL (9-23); Glucose 114 mg/dL (74-106); Salicylate < 3.0 mg/dL (-30)
[2024-06-03 01:05] VITALS: PULSE 95; RESP 14; O2SAT 96
[2024-06-03 01:11] LABS: Urine Blood Negative /uL (Negative); Urine Clarity Clear (Clear); Urine Color Colorless (Yellow); Urine Protein, UAD Negative (Negative); Urine Specific Gravity 1.003 (1.001-1.035); Urine Squamous Epithelial Cell None Seen /hpf (<5); Urine Urobilinogen Normal (Negative)
[2024-06-03 01:19] LABS: Urine WBC < 1 /HPF (0-3)
--- NOTE | 2024-06-03 01:28 | ED.PDOC ---
History of Present Illness HPI Comments 39 y/o M presents with c/o suicidal ideations, today. Patient endorses on having current thoughts on wanting to end his life, with no concrete plan in place. He has a history of suicidal ideations, bipolar disorder, schizophrenia, polysubstance abuse, and depression. He reports no recent stressors, life even ts, or substance use. Patient denies any homicidal ideations, auditory or visual hallucinations, or other associated symptoms or modifiers at this time. Chief Complaint: Suicidal Time Seen by MD: 01:20 Primary Care Provider: None Reviewed Notes: Nurses Notes, Medications, Allergies Allergies: Coded Allergies: NO KNOWN ALLERGIES (Unverified , 12/05/18) Information Source: Patient Mode of Arrival: Ambulatory Past Medical History PAST MEDICAL HISTORY: Depression, Schizophrenia Past Medical History (Other): Bipolar disorder, obesity, suicidal ideations Surgical History: Denies all surgeries Family History Family History: Reviewed,noncontributory to illness Social History Smoker: Cigarettes Alcohol: Denies ETOH Use Drugs: Methamphetamine Lives In: Homeless Psychiatric: reports: suicidal All Other Systems: Reviewed and Negative (negative unless otherwise stated above or in HPI) Physical Exam General Appearance: No Apparent Distress, Obese, Other (cachectic appearance) HEENT: Normal ENT Inspection, Pharynx Normal, TMs Normal Neck: Full Range of Motion, Non-Tender, Normal, Normal Inspection Respiratory: Chest Non-Tender, Lungs Clear, No Accessory Muscle Use, No Respiratory Distress, Normal Breath Sounds Cardiovascular: No Edema, No JVD, No Murmur, No Gallop, Normal Peripheral Pulses, Regular Rate/Rhythm Breast Exam: Deferred Gastrointestinal: No Organomegaly, Non Tender, No Pulsatile Mass, Normal Bowel Sounds, Soft Genitalia: Deferred Pelvic: Deferred Rectal: Deferred Extremities: No calf tenderness, Normal capillary refill, Normal inspection, Normal range of motion, Non-tender, No pedal edema Musculoskeletal : Apperance: Normal Neurologic: Alert, director state pharmacy II-XII nml as Tested, No Motor Deficits, Normal Affect, Normal Mood, No Sensory Deficits Cerebellar Function: Normal Reflexes: Normal Skin: Dry, Normal Color, Warm Lymphatic: No Adenopathy Was a procedure done? Was a procedure done?: No Differential Dx Considerations may include: suicidal, depression, anxiety, hopelessness, schizoaffective disorder, bipolar disorder X-Ray, Labs, Meds, VS Vital Signs Date Time Temp Pulse Resp B/P (MAP) Pulse Ox O2 Delivery O2 Flow Rate FiO2 06/03/24 16:11 97.4 80 18 115/82 (93) 95 97.4 06/03/24 07:57 98.1 77 17 123/65 (84) 94 98.1 06/03/24 07:47 77 17 95 Room Air* 0 21 06/03/24 01:05 97.6 95 14 108/84 (92) 96 97.6 06/03/24 01:05 95 14 96 Room Air* 0 21 06/03/24 00:07 97.6 96 14 108/84 (92) 95 97.6 Lab Test 06/03/24 00:35 06/03/24 00:23 Range/Units White Blood Count 6.1 4.4-10.8 10^3/uL Red Blood Count 5.71 4.5-5.90 10^6/uL Hemoglobin 17.9 H 13.5-17.5 g/dL Hematocrit 51.8 41.0-53.0 % Mean Corpuscular Volume 90.7 80.0-100.0 fL Mean Corpuscular Hemoglobin 31.3 28.0-32.0 pg Mean Corpuscular Hemoglobin Concent 34.5 32.0-36.0 g/dL Red Cell Distribution Width 15.0 H 11.8-14.3 % Platelet Count 288 140-450 10^3/uL Mean Platelet Volume 8.4 6.9-10.8 fL Neutrophils (%) (Auto) 60.2 37.0-80.0 % Lymphocytes (%) (Auto) 29.4 10.0-50.0 % Monocytes (%) (Auto) 8.3 0.0-12.0 % Eosinophils (%) (Auto) 1.5 0.0-7.0 % Basophils (%) (Auto) 0.6 0.0-2.0 % Neutrophils # (Auto) 3.7 1.6-8.6 10 ^3/uL Lymphocytes # (Auto) 1.8 0.4-5.4 10 ^3/uL Monocytes # (Auto) 0.5 0-1.3 10 ^3/uL Eosinophils # (Auto) 0.1 0-0.8 10 ^3/uL Basophils # (Auto) 0 0-0.2 10 ^3/uL Nucleated Red Blood Cells 0.1 % Sodium Level 139 136-145 mmol/L Potassium Level 4.6 3.5-5.1 mmol/L Chloride Level 105 98-107 mmol/L Carbon Dioxide Level 28 20-31 mmol/L Anion Gap 6 5-15 Blood Urea Nitrogen 11 9-23 mg/dL Creatinine 1.26 0.700-1.30 mg/dL Glomerular Filtration Rate Calc 74 >90 mL/min BUN/Creatinine Ratio 8.7 L 10.0-20.0 Serum Glucose 114 H 74-106 mg/dL Calcium Level 10.4 8.7-10.4 mg/dL Salicylates Level < 3.0 -30 mg/dL Acetaminophen Level < 2.0 L 10.0-20.0 UG/ML Plasma/Serum Blood Alcohol < 3.0 <10 mg/dL Urine Color Colorless Yellow Urine Clarity Clear Clear Urine pH 5.0 5.0-9.0 Urine Specific [place] 1.003 1.001-1.035 Urine Protein Negative Negative Urine Ketones Negative Negative Urine Blood Negative Negative /uL Urine Nitrite Negative Negative Urine Bilirubin Negative Negative Urine Urobilinogen Normal Negative mg/dL Urine Leukocyte Esterase Negative Negative /uL Urine RBC <1 0 - 3 /hpf Urine Microscopic WBC < 1 0-3 /HPF Urine Squamous Epithelial Cells None seen <5 /hpf Urine Bacteria None seen None Seen /hpf Urine Glucose Normal Normal mg/dL Urine Opiates Screen Neg NEGATIVE Urine Fentanyl Screen Neg NEGATIVE Urine Barbiturates Screen Neg NEGATIVE Urine Phencyclidine Screen Neg NEGATIVE Urine Amphetamines Screen Pos NEGATIVE Urine Benzodiazepines Screen Neg NEGATIVE Urine Cocaine Screen Neg NEGATIVE Urine Cannabinoids Screen Neg NEGATIVE Time of 1ST Reevaluation: 01:50 Reevaluation 1ST: Unchanged Patient Education/Counseling: Diagnosis, Treatment Family Education/Counseling: No Family Present Additional Information Previous visits reviewed: April 07, 2024 encounter for suicidal ideations Labs ordered: UA, salicylate, CBC, acetaminophen, blood alcohol, drug screen, BMP Departure 1 Departure Time of Disposition: 05:02 (Patient presenting with suicide ideation.) Impression: Primary Impression: Suicide ideation Disposition: 30 STILL A PATIENT Condition: Serious Critical Care Note Critical Care Time?: No Stability Stability form required: No Heart Score Heart Score: Heart Score Response (Comments) Value History N/A 0 EKG N/A 0 Age N/A 0 Risk Factors N/A 0 Troponin N/A 0 Total 0 I personally scribed for TASNEEM CASTELLANOS MD ([email or web address]) on 06/03/24 at 01:28. Electronically submitted by Steven Nick [email or web address]). TASNEEM CASTELLANOS MD Jun 03, 2024 01:28
[2024-06-03 01:40] LABS: Phencyclidine Screen, Urine Neg (NEGATIVE)
[2024-06-03 01:41] LABS: Amphetamine Screen, Urine Pos (NEGATIVE); Barbiturate Scree,Urine Neg (NEGATIVE); Benzodiazephine Screen, Urine Neg (NEGATIVE); Cannabinoid Screen, Urine Neg (NEGATIVE); Cocaine Screen, Urine Neg (NEGATIVE); Opiate Scree,Urine Neg (NEGATIVE)
[2024-06-03 01:41] LABS: Blood Alcohol < 3.0 mg/dL (<10)
--- NOTE | 2024-06-03 06:56 | DVHINCON2 ---
Date of Service if different f: Jun 03, 2024 Time of Service: 06:40 Consultation ([facility]) Consulting Physician: CAESAR SANCHEZ MD Labs Laboratory Tests Test 06/03/24 00:23 06/03/24 00:35 Urine Color Colorless (Yellow) Urine Clarity Clear (Clear) Urine pH 5.0 (5.0-9.0) Urine Specific [place] 1.003 (1.001-1.035) Urine Protein Negative (Negative) Urine Ketones Negative (Negative) Urine Blood Negative /uL (Negative) Urine Nitrite Negative (Negative) Urine Bilirubin Negative (Negative) Urine Urobilinogen Normal mg/dL (Negative) Urine Leukocyte Esterase Negative /uL (Negative) Urine RBC <1 /hpf (0 - 3) Urine Microscopic WBC < 1 /HPF (0-3) Urine Squamous Epithelial Cells None seen /hpf (<5) Urine Bacteria None seen /hpf (None Seen) Urine Glucose Normal mg/dL (Normal) Urine Opiates Screen Neg (NEGATIVE) Urine Fentanyl Screen Neg (NEGATIVE) Urine Barbiturates Screen Neg (NEGATIVE) Urine Phencyclidine Screen Neg (NEGATIVE) Urine Amphetamines Screen Pos (NEGATIVE) Urine Benzodiazepines Screen Neg (NEGATIVE) Urine Cocaine Screen Neg (NEGATIVE) Urine Cannabinoids Screen Neg (NEGATIVE) White Blood Count 6.1 10^3/uL (4.4-10.8) Red Blood Count 5.71 10^6/uL (4.5-5.90) Hemoglobin 17.9 g/dL (13.5-17.5) Hematocrit 51.8 % (41.0-53.0) Mean Corpuscular Volume 90.7 fL (80.0-100.0) Mean Corpuscular Hemoglobin 31.3 pg (28.0-32.0) Mean Corpuscular Hemoglobin Concent 34.5 g/dL (32.0-36.0) Red Cell Distribution Width 15.0 % (11.8-14.3) Platelet Count 288 10^3/uL (140-450) Mean Platelet Volume 8.4 fL (6.9-10.8) Neutrophils (%) (Auto) 60.2 % (37.0-80.0) Lymphocytes (%) (Auto) 29.4 % (10.0-50.0) Monocytes (%) (Auto) 8.3 % (0.0-12.0) Eosinophils (%) (Auto) 1.5 % (0.0-7.0) Basophils (%) (Auto) 0.6 % (0.0-2.0) Neutrophils # (Auto) 3.7 10 ^3/uL (1.6-8.6) Lymphocytes # (Auto) 1.8 10 ^3/uL (0.4-5.4) Monocytes # (Auto) 0.5 10 ^3/uL (0-1.3) Eosinophils # (Auto) 0.1 10 ^3/uL (0-0.8) Basophils # (Auto) 0 10 ^3/uL (0-0.2) Nucleated Red Blood Cells 0.1 % Sodium Level 139 mmol/L (136-145) Potassium Level 4.6 mmol/L (3.5-5.1) Chloride Level 105 mmol/L (98-107) Carbon Dioxide Level 28 mmol/L (20-31) Anion Gap 6 (5-15) Blood Urea Nitrogen 11 mg/dL (9-23) Creatinine 1.26 mg/dL (0.700-1.30) Glomerular Filtration Rate Calc 74 mL/min (>90) BUN/Creatinine Ratio 8.7 (10.0-20.0) Serum Glucose 114 mg/dL (74-106) Calcium Level 10.4 mg/dL (8.7-10.4) Salicylates Level < 3.0 mg/dL (-30) Acetaminophen Level < 2.0 UG/ML (10.0-20.0) Plasma/Serum Blood Alcohol < 3.0 mg/dL (<10) Appearance: Stated age Psychomotor activity: Calm Behavioral: Cooperative Eye contact: Appropriate Speech: WNL Affect: Mood Congruent, Blunted Mood: Depressed Thought processes: Linear/Goal-directed Thought content: Hallucinations Orientation: Person, Place, Time, Situation Memory intact: Recent Intellect: Average Abstractability: WNL Concentration: Limited Attention: Limited Judgement: Poor Insight: Poor Vitals Vital Signs Date Time Temp Pulse Resp B/P (MAP) Pulse Ox O2 Delivery O2 Flow Rate FiO2 06/03/24 01:05 97.6 95 14 108/84 (92) 96 97.6 06/03/24 01:05 Room Air* 0 21 Treatment plan discussed: With staff Medication adjusted: Yes Labs ordered: No Psychotherapy provided: No Type: Voluntary History of Present Illness Reason for Consult : psychiatric evaluation PER ED PHYSICIAN: 39 y/o M presents with c/o suicidal ideations, today. Patient endorses on having current thoughts on wanting to end his life, with no concrete plan in place. He has a history of suicidal ideations, bipolar disorder, schizophrenia, polysubstance abuse, and depression. He reports no recent stressors, life events, or substance use. Patient denies any homicidal ideations, auditory or visual hallucinations, or other associated symptoms or modifiers at this time. PSYCHIATRIST HPI: The patient was seen and evaluated at [facility] ED via telepsychiatry platform. 39 yr old male reported he was feeling suicidal. He noted he has been feeling down and depressed. He reported he hears voices which talk to him and make him feel uncomfortable. He feels tired and wants to sleep. He noted he hasn't been taking his prescribed medications for several weeks. He denied having HI/AVH. Past Psychiatric History : Ten hospitalizations. Last hospitalized in Mar 2024. No past suicide attempt. Diagnosed with bipolar disorder at around age 35. Current medications: None currently. He had been taking risperidone 2mg, trazodone 50mg qhs, but hasn't taken for several weeks. NKDA Past Medical History : none Substance Use: Meth-smokes about once a week. Occasional alcohol use. Denied other drug use. Has attended rehab a few months ago. Social History : Lives in a transitional living place. DIAGNOSIS: UNSPECIFIED DEPRESSIVE DISORDER: METH USE DISORDER Formulation: This 39 yr old male appears to suffer from depression and meth use. He is currently passively suicidal, but this could be in the context of recent meth intoxication. He may return to his baseline after he is able to metabolize some meth in his system and may benefit from observation in the ED and reassess in several hours to see if he warrants admission to a behavioral health unit. Plan: 1.Recommend observing in ED for 8 hours and reassessing for possible BHU admission versus discharge. 2. Legal-voluntary. 3. Medications: recommend Risperdal 2mg qhs and Trazodone 50mg qhs for sleep. 4. Case discussed with ED physician Dr Mesa. 5. Please recontact psychiatry for further follow up or reevaluation. Assessment/Diagnosis/Plan Reviewed: Labs, Medications, Previous Orders CAESAR SANCHEZ MD Jun 03, 2024 06:41
[2024-06-03 07:47] VITALS: PULSE 77; RESP 17; O2SAT 95
[2024-06-03 16:11] VITALS: BP 115/82; PULSE 80; RESP 18; TEMP 97.4; O2SAT 95
== END 2024-06-03 16:20 | disposition short-term general hospital (02) ==
LOC: ER 23:43
DX: R45.851 Suicidal ideations (principal); F32.9 Major depressive disorder, single episode, unspecified; F20.9 Schizophrenia, unspecified; F17.210 Nicotine dependence, cigarettes, uncomplicated; F15.90 Other stimulant use, unspecified, uncomplicated; Z59.00 Homelessness unspecified; Z79.899 Other long term (current) drug therapy
CPT/HCPCS: 36415; 80048; 80307; 80320; 80329; 81001; 85025; 99285; J7030